=== PATIENT | female | born 1940 | race Hispanic/Latino ===

== ENCOUNTER 2017-12-20 18:16 | Emergency (ER) | payer MEDICARE ==
[~2017-12-20 18:16] MED LIST: ACET325T51 PO; AMIO200T2 PO; APIX2.5T PO; CARV25TA PO; CLOP75TA32 PO; FERR325T22 PO; FURO20TA4 PO; ISOS40TA16 PO; LEVO50TA11 PO; PRAV40TA3 PO; RANO500T3 PO; SACU1TAB7 PO; SENN-178 PO; TRAM50TA4 PO
[2017-12-20 18:57] LABS: INR 1.13 (0.85-1.15); PARTIAL THROMBOPLASTIN TIME 33.8 SEC (26.3-35.5); PROTHROMBIN TIME 11.8 SEC (9.6-11.6)
[2017-12-20 19:07] LABS: BASOPHILS % (AUTO) 0.5 % (0.0-5.0); EOSINOPHILS % (AUTO) 5.9 % (0.0-8.0); HEMATOCRIT 25.9 % (36-48); LYMPHOCYTES % (AUTO) 17.5 % (21.0-51.0); MEAN CORPUSCULAR HEMOGLOBIN 34.7 pg (27.0-33.0); MEAN CORPUSCULAR HGB CONC 34.4 g/dL (32.0-36.0); NEUTROPHILS % (AUTO) 69.1 % (40.0-77.0); PLATELET COUNT (AUTO) 215 K/uL (130-400); RED BLOOD CELL COUNT(AUTO) 2.57 MIL/uL (4.00-5.50); RED CELL DISTRIBUTION WIDTH 12.8 % (11.0-15.5); WHITE BLOOD COUNT (AUTO) 7.2 K/uL (4.8-10.8)
[2017-12-20 19:21] LABS: APPEARANCE,URINE CLOUDY (CLEAR); BILIRUBIN,URINE NEGATIVE (NEGATIVE); COLOR,URINE YELLOW (YELLOW); GLUCOSE, URINE (UA) NEGATIVE (NEGATIVE); KETONES,URINE NEGATIVE (NEGATIVE); LEUKOCYTE ESTERASE ,URINE LARGE (NEGATIVE); NITRATE,URINE POSITIVE (NEGATIVE); OCCULT BLOOD,URINE LARGE (NEGATIVE); PROTEIN,URINE 30 (NEGATIVE); UROBILINOGEN,URINE 0.2 mg/dL (0.2-1.0)
[2017-12-20] MEDS ORDERED: ASPIRIN 325 MG TABLET ONE (19:42)
[2017-12-20 19:55] LABS: BACTERIA,URINE Few /HPF (None Seen); SQUAMOUS EPITHELIAL CELL,UR Few /LPF (0-2); WBC,URINE 26-50 /HPF (0-1)
[2017-12-20 20:12] LABS: BILIRUBIN,TOTAL 0.3 mg/dL (0.2-1.0); CREATININE 2.5 mg/dL (0.5-1.5); POTASSIUM 5.6 mmol/L (3.5-5.1)
[2017-12-20 20:37] LABS: RAPID GROUP A STREP NEGATIVE (NEGATIVE)
[2017-12-20] MEDS ORDERED: SODIUM POLYSTYRENE SULFONATE 15 GM/60 ML ML ONE (20:47)
== END 2017-12-20 21:50 | disposition home or self-care (01) ==
LOC: EDH 18:16
DX: R42 Dizziness and giddiness (principal); R53.1 Weakness; N39.0 Urinary tract infection, site not specified; E11.9 Type 2 diabetes mellitus without complications; I25.10 Atherosclerotic heart disease of native coronary artery without angina pectoris; E78.5 Hyperlipidemia, unspecified; I50.9 Heart failure, unspecified; Z98.890 Other specified postprocedural states; Z88.8 Allergy status to other drugs, medicaments and biological substances
CPT/HCPCS: 36415; 70450; 71045; 80053; 81001; 82550; 82553; 83605; 83874; 83880; 84484; 85025; 85610; 85730; 87804; 87880; 93005; 94761

== ENCOUNTER 2018-01-13 10:47 | Inpatient (IN) | payer MEDICARE ==
[~2018-01-13] VITALS: Ht 152.4 cm; Wt 80.7 kg
[2018-01-13 11:33] LABS: CREATININE 2.2 mg/dL (0.5-1.5); POTASSIUM 4.6 mmol/L (3.5-5.1)
[2018-01-13 11:36] LABS: BASOPHILS % (AUTO) 0.5 % (0.0-5.0); HEMATOCRIT 23.2 % (36-48); LYMPHOCYTES % (AUTO) 9.7 % (21.0-51.0); MEAN CORPUSCULAR HEMOGLOBIN 34.7 pg (27.0-33.0); MEAN CORPUSCULAR HGB CONC 34.3 g/dL (32.0-36.0); MEAN CORPUSCULAR VOLUME 101.2 fL (79-99); MONOCYTES % (AUTO) 5.4 % (3.0-13.0); NEUTROPHILS % (AUTO) 83.4 % (40.0-77.0); PLATELET COUNT (AUTO) 229 K/uL (130-400); RED BLOOD CELL COUNT(AUTO) 2.29 MIL/uL (4.00-5.50); RED CELL DISTRIBUTION WIDTH 14.4 % (11.0-15.5); WHITE BLOOD COUNT (AUTO) 8.9 K/uL (4.8-10.8)
[2018-01-13 11:38] LABS: ALBUMIN 2.9 g/dL (3.5-5.0); BILIRUBIN,TOTAL 0.4 mg/dL (0.2-1.0); TOTAL PROTEIN, SERUM 7.1 g/dL (6.0-8.3)
[2018-01-13 11:46] LABS: INR 1.26 (0.85-1.15); PARTIAL THROMBOPLASTIN TIME 35.4 SEC (26.3-35.5); PROTHROMBIN TIME 13.2 SEC (9.6-11.6)
[2018-01-13] MEDS ORDERED: IPRATROPIUM/ALBUTEROL SULFATE 3 ML SOLUTION IH ONE ×2 (13:46→15:56)
[2018-01-13] MEDS ORDERED: CEFTRIAXONE SODIUM 1 GM ONE (16:20)
[2018-01-13] MEDS ORDERED: AZITHROMYCIN 250 MG TABLET PO ONE (16:21)
[2018-01-13] MEDS ORDERED: SODIUM CHLORIDE 0.9% 100 ML IV ONE (16:21)
[2018-01-13] MEDS ORDERED: METHYLPREDNISOLONE SOD SUCC 40MG/ML 1ML ONE (16:30)
[2018-01-13] MEDS ORDERED: FUROSEMIDE 10 MG/ML 2ML VIAL ONE (16:32)
[2018-01-13 18:01] VITALS: BP 130/62
[2018-01-13] MEDS ORDERED: LEVO500T89 PO (18:13)
[2018-01-13] MEDS ORDERED: CHOL200074 PO (18:13)
[2018-01-13] MEDS ORDERED: INSU100V12 SQ ×2 (18:14)
[2018-01-13 20:00] VITALS: BP 121/66
[2018-01-13] MEDS: FUROSEMIDE 10 MG/ML 2ML VIAL IVP SCH (20:06)
[2018-01-13] MEDS: METHYLPREDNISOLONE SOD SUCC 40MG/ML 1ML IVP SCH (20:07)
[2018-01-13] MEDS: INSULIN R PO SS1 SQ SCH (20:35)
[2018-01-13] MEDS: IPRATROPIUM/ALBUTEROL SULFATE 3 ML SOLUTION IH SCH (23:42)
[2018-01-14] VITALS: BP 123/73
[2018-01-14 04:00] VITALS: BP 116/65
[2018-01-14] MEDS: IPRATROPIUM/ALBUTEROL SULFATE 3 ML SOLUTION IH SCH ×4 (05:00→22:54)
[2018-01-14 05:29] LABS: HEMATOCRIT 24.6 % (36-48); MEAN CORPUSCULAR HEMOGLOBIN 35.5 pg (27.0-33.0); MEAN CORPUSCULAR HGB CONC 35.3 g/dL (32.0-36.0); MEAN CORPUSCULAR VOLUME 100.5 fL (79-99); PLATELET COUNT (AUTO) 258 K/uL (130-400); RED BLOOD CELL COUNT(AUTO) 2.44 MIL/uL (4.00-5.50); WHITE BLOOD COUNT (AUTO) 8.2 K/uL (4.8-10.8)
[2018-01-14 05:39] LABS: ALBUMIN 2.9 g/dL (3.5-5.0); BILIRUBIN,TOTAL 0.4 mg/dL (0.2-1.0); CREATININE 2.3 mg/dL (0.5-1.5); POTASSIUM 4.2 mmol/L (3.5-5.1); TOTAL PROTEIN, SERUM 7.2 g/dL (6.0-8.3)
[2018-01-14] MEDS: INSULIN R PO SS1 SQ SCH ×4 (05:44→22:01)
[2018-01-14 07:37] VITALS: BP 147/67
[2018-01-14] MEDS: LEVOTHYROXINE 50 MCG TABLET PO SCH (08:51)
[2018-01-14] MEDS: ATORVASTATIN CALCIUM 10 MG TABLET PO SCH (08:51)
[2018-01-14] MEDS: METHYLPREDNISOLONE SOD SUCC 40MG/ML 1ML IVP SCH ×2 (08:51→21:47)
[2018-01-14] MEDS: AMIODARONE HCL 200 MG TABLET PO SCH ×2 (08:52→21:47)
[2018-01-14] MEDS: CARVEDILOL 25 MG TABLET PO SCH ×2 (08:52→21:48)
[2018-01-14] MEDS: PANTOPRAZOLE SODIUM 40 MG TABLET.DR PO SCH (08:52)
[2018-01-14] MEDS: APIXABAN 2.5 MG TABLET PO SCH ×2 (08:52→21:48)
[2018-01-14] MEDS: FERROUS SULFATE 325 MG TABLET.DR PO SCH (08:52)
[2018-01-14] MEDS: CLOPIDOGREL BISULFATE 75 MG TAB PO SCH (08:52)
[2018-01-14] MEDS: RANOLAZINE 500 MG TAB.SR.12H PO SCH ×2 (08:52→21:47)
[2018-01-14] MEDS: FUROSEMIDE 10 MG/ML 2ML VIAL IVP SCH ×2 (08:53→21:47)
[2018-01-14] MEDS: **HM** VIT D3 2000 UNITS PO SCH (08:54)
[2018-01-14] MEDS: ISOSORBIDE DINITRATE 20 MG TABLET PO SCH ×2 (08:55→21:48)
[2018-01-14] MEDS ORDERED: SENNA S PO PRN (09:00)
[2018-01-14] MEDS ORDERED: ISOSORBIDE DINITRATE 20 MG TABLET PO SCH (09:00)
[2018-01-14 11:19] VITALS: BP 109/52
[2018-01-14] MEDS: CEFTRIAXONE SODIUM 1 GM IVP SCH (14:55)
[2018-01-14 15:11] VITALS: BP 103/55
[2018-01-14] MEDS: AZITHROMYCIN 500MG+NS 250ML 250 ML IV SCH (15:46)
[2018-01-14 20:00] VITALS: BP 112/60
[2018-01-15] VITALS: BP 114/66
[2018-01-15 04:00] VITALS: BP 111/61
[2018-01-15] MEDS: INSULIN R PO SS1 SQ SCH ×4 (06:27→22:08)
[2018-01-15] MEDS: IPRATROPIUM/ALBUTEROL SULFATE 3 ML SOLUTION IH SCH ×5 (06:59→23:47)
[2018-01-15 08:18] VITALS: BP 125/57
[2018-01-15] MEDS: LEVOTHYROXINE 50 MCG TABLET PO SCH (08:35)
[2018-01-15] MEDS: APIXABAN 2.5 MG TABLET PO SCH ×2 (08:35→22:14)
[2018-01-15] MEDS: METHYLPREDNISOLONE SOD SUCC 40MG/ML 1ML IVP SCH ×2 (08:35→22:14)
[2018-01-15] MEDS: FUROSEMIDE 10 MG/ML 2ML VIAL IVP SCH ×2 (08:35→22:14)
[2018-01-15] MEDS: ATORVASTATIN CALCIUM 10 MG TABLET PO SCH (08:35)
[2018-01-15] MEDS: RANOLAZINE 500 MG TAB.SR.12H PO SCH ×2 (08:36→22:14)
[2018-01-15] MEDS: FERROUS SULFATE 325 MG TABLET.DR PO SCH (08:36)
[2018-01-15] MEDS: PANTOPRAZOLE SODIUM 40 MG TABLET.DR PO SCH (08:36)
[2018-01-15] MEDS: CLOPIDOGREL BISULFATE 75 MG TAB PO SCH (08:36)
[2018-01-15] MEDS: AMIODARONE HCL 200 MG TABLET PO SCH ×2 (08:36→22:14)
[2018-01-15] MEDS: **HM** VIT D3 2000 UNITS PO SCH (08:38)
[2018-01-15] MEDS: ISOSORBIDE DINITRATE 20 MG TABLET PO SCH ×2 (09:00→21:00)
[2018-01-15] MEDS: CARVEDILOL 25 MG TABLET PO SCH ×2 (09:00→21:00)
[2018-01-15 11:14] VITALS: BP 92/63
[2018-01-15] MEDS: AZITHROMYCIN 500MG+NS 250ML 250 ML IV SCH (15:53)
[2018-01-15] MEDS: CEFTRIAXONE SODIUM 1 GM IVP SCH (15:53)
[2018-01-15 17:10] VITALS: BP 147/67
[2018-01-15 19:40] VITALS: BP 112/96
[2018-01-16 00:22] VITALS: BP 125/63
[2018-01-16 04:47] VITALS: BP 142/68
[2018-01-16] MEDS: IPRATROPIUM/ALBUTEROL SULFATE 3 ML SOLUTION IH SCH ×4 (06:10→23:57)
[2018-01-16] MEDS: INSULIN R PO SS1 SQ SCH ×4 (06:16→22:18)
[2018-01-16 08:17] VITALS: BP 128/73
[2018-01-16] MEDS: CARVEDILOL 25 MG TABLET PO SCH ×2 (09:00→22:21)
[2018-01-16] MEDS: **HM** VIT D3 2000 UNITS PO SCH (09:00)
[2018-01-16] MEDS: APIXABAN 2.5 MG TABLET PO SCH ×2 (10:45→22:20)
[2018-01-16] MEDS: RANOLAZINE 500 MG TAB.SR.12H PO SCH ×2 (10:46→22:20)
[2018-01-16] MEDS: CLOPIDOGREL BISULFATE 75 MG TAB PO SCH (10:46)
[2018-01-16] MEDS: PANTOPRAZOLE SODIUM 40 MG TABLET.DR PO SCH (10:46)
[2018-01-16] MEDS: FUROSEMIDE 10 MG/ML 2ML VIAL IVP SCH ×2 (10:46→22:21)
[2018-01-16] MEDS: ATORVASTATIN CALCIUM 10 MG TABLET PO SCH (10:46)
[2018-01-16] MEDS: ISOSORBIDE DINITRATE 20 MG TABLET PO SCH ×2 (10:46→21:00)
[2018-01-16] MEDS: FERROUS SULFATE 325 MG TABLET.DR PO SCH (10:46)
[2018-01-16] MEDS: METHYLPREDNISOLONE SOD SUCC 40MG/ML 1ML IVP SCH ×2 (10:46→22:21)
[2018-01-16] MEDS: AMIODARONE HCL 200 MG TABLET PO SCH ×2 (10:47→22:20)
[2018-01-16] MEDS: LEVOTHYROXINE 50 MCG TABLET PO SCH (10:48)
[2018-01-16 11:52] VITALS: BP 145/80
[2018-01-16 16:12] VITALS: BP 124/73
[2018-01-16] MEDS: LACTULOSE 20 GM/30 ML UDCUP PO SCH (16:59)
[2018-01-16] MEDS: CEFTRIAXONE SODIUM 1 GM IVP SCH (17:00)
[2018-01-16] MEDS: AZITHROMYCIN 500MG+NS 250ML 250 ML IV SCH (17:00)
[2018-01-16 20:29] VITALS: BP 134/72
[2018-01-17 00:44] VITALS: BP 124/72
[2018-01-17] MEDS: LACTULOSE 20 GM/30 ML UDCUP PO SCH ×4 (00:45→21:41)
[2018-01-17 04:21] VITALS: BP 117/52
[2018-01-17 06:11] LABS: HEMATOCRIT 24.7 % (36-48); MEAN CORPUSCULAR HEMOGLOBIN 33.7 pg (27.0-33.0); MEAN CORPUSCULAR HGB CONC 33.5 g/dL (32.0-36.0); MEAN CORPUSCULAR VOLUME 100.4 fL (79-99); NUCLEATED RED BLOOD CELLS 0.1 % (0.0-0.19); PLATELET COUNT (AUTO) 269 K/uL (130-400); RED BLOOD CELL COUNT(AUTO) 2.46 MIL/uL (4.00-5.50); RED CELL DISTRIBUTION WIDTH 14.6 % (11.0-15.5); WHITE BLOOD COUNT (AUTO) 11.2 K/uL (4.8-10.8)
[2018-01-17 06:25] LABS: ALBUMIN 2.9 g/dL (3.5-5.0); BILIRUBIN,TOTAL 0.3 mg/dL (0.2-1.0); MAGNESIUM 2.2 mg/dL (1.80-2.40); TOTAL PROTEIN, SERUM 6.7 g/dL (6.0-8.3)
[2018-01-17] MEDS: INSULIN R PO SS1 SQ SCH ×4 (06:29→21:56)
[2018-01-17] MEDS: IPRATROPIUM/ALBUTEROL SULFATE 3 ML SOLUTION IH SCH ×4 (06:34→23:48)
[2018-01-17 07:53] VITALS: BP 112/48
[2018-01-17] MEDS: ISOSORBIDE DINITRATE 20 MG TABLET PO SCH ×2 (09:00→21:43)
[2018-01-17] MEDS: **HM** VIT D3 2000 UNITS PO SCH (09:00)
[2018-01-17] MEDS ORDERED: BISACODYL 10 MG SUPP.RECT RC SCH (09:09)
[2018-01-17] MEDS: FUROSEMIDE 10 MG/ML 2ML VIAL IVP SCH ×2 (10:36→21:43)
[2018-01-17] MEDS: METHYLPREDNISOLONE SOD SUCC 40MG/ML 1ML IVP SCH ×2 (10:37→21:43)
[2018-01-17] MEDS: APIXABAN 2.5 MG TABLET PO SCH ×2 (10:39→21:43)
[2018-01-17] MEDS: RANOLAZINE 500 MG TAB.SR.12H PO SCH ×2 (10:40→21:43)
[2018-01-17] MEDS: FERROUS SULFATE 325 MG TABLET.DR PO SCH (10:40)
[2018-01-17] MEDS: CLOPIDOGREL BISULFATE 75 MG TAB PO SCH (10:40)
[2018-01-17] MEDS: CARVEDILOL 25 MG TABLET PO SCH ×2 (10:40→21:44)
[2018-01-17] MEDS: LEVOTHYROXINE 50 MCG TABLET PO SCH (10:40)
[2018-01-17] MEDS: AMIODARONE HCL 200 MG TABLET PO SCH ×2 (10:40→21:44)
[2018-01-17] MEDS: PANTOPRAZOLE SODIUM 40 MG TABLET.DR PO SCH (10:40)
[2018-01-17] MEDS: ATORVASTATIN CALCIUM 10 MG TABLET PO SCH (10:40)
[2018-01-17 11:59] VITALS: BP 91/58
[2018-01-17] MEDS: CEFTRIAXONE SODIUM 1 GM IVP SCH (15:57)
[2018-01-17] MEDS: AZITHROMYCIN 500MG+NS 250ML 250 ML IV SCH (15:57)
[2018-01-17 16:00] VITALS: BP 139/54
[2018-01-17] MEDS: ACETAMINOPHEN 325 MG TAB PO PRN (18:25)
[2018-01-17] MEDS ORDERED: ONDANSETRON HCL 4 MG/2 ML VIAL ONE (18:44)
[2018-01-17] MEDS ORDERED: ACETAMINOPHEN 325 MG TAB PO PRN (19:30)
[2018-01-17 20:29] VITALS: BP 114/62
[2018-01-17] MEDS: HYDROMORPHONE HCL 0.5 MG/0.5 ML ML IVP PRN (21:45)
[2018-01-17] MEDS: ONDANSETRON HCL 4 MG/2 ML VIAL IVP PRN (22:46)
[2018-01-18] VITALS (16 sets, daily range): BP systolic 65–156; BP diastolic 28–62
[2018-01-18] MEDS: ACETAMINOPHEN 325 MG TAB PO PRN ×2 (00:55→06:47)
[2018-01-18] MEDS: IPRATROPIUM/ALBUTEROL SULFATE 3 ML SOLUTION IH SCH ×4 (06:43→23:42)
[2018-01-18] MEDS: INSULIN R PO SS1 SQ SCH ×4 (06:49→20:55)
[2018-01-18 07:59] LABS: HEMATOCRIT 31.3 % (36-48); MEAN CORPUSCULAR HEMOGLOBIN 34.8 pg (27.0-33.0); MEAN CORPUSCULAR HGB CONC 34.6 g/dL (32.0-36.0); MEAN CORPUSCULAR VOLUME 100.6 fL (79-99); PLATELET COUNT (AUTO) 294 K/uL (130-400); RED BLOOD CELL COUNT(AUTO) 3.11 MIL/uL (4.00-5.50); RED CELL DISTRIBUTION WIDTH 14.8 % (11.0-15.5); WHITE BLOOD COUNT (AUTO) 23.4 K/uL (4.8-10.8)
[2018-01-18 08:15] LABS: ALBUMIN 2.6 g/dL (3.5-5.0); BILIRUBIN,TOTAL 0.4 mg/dL (0.2-1.0); CREATININE 2.9 mg/dL (0.5-1.5); POTASSIUM 3.8 mmol/L (3.5-5.1)
[2018-01-18] MEDS: LACTULOSE 20 GM/30 ML UDCUP PO SCH (08:45)
[2018-01-18] MEDS: **HM** VIT D3 2000 UNITS PO SCH (09:00)
[2018-01-18] MEDS: FUROSEMIDE 10 MG/ML 2ML VIAL IVP SCH (09:55)
[2018-01-18] MEDS: ONDANSETRON HCL 4 MG/2 ML VIAL IVP PRN (10:08)
[2018-01-18] MEDS: RANOLAZINE 500 MG TAB.SR.12H PO SCH ×2 (10:09→20:48)
[2018-01-18] MEDS: PANTOPRAZOLE SODIUM 40 MG TABLET.DR PO SCH (10:09)
[2018-01-18] MEDS: APIXABAN 2.5 MG TABLET PO SCH ×2 (10:09→20:48)
[2018-01-18] MEDS: AMIODARONE HCL 200 MG TABLET PO SCH ×2 (10:09→19:58)
[2018-01-18] MEDS: CLOPIDOGREL BISULFATE 75 MG TAB PO SCH (10:09)
[2018-01-18] MEDS: FERROUS SULFATE 325 MG TABLET.DR PO SCH (10:10)
[2018-01-18] MEDS: ATORVASTATIN CALCIUM 10 MG TABLET PO SCH (10:10)
[2018-01-18] MEDS: ISOSORBIDE DINITRATE 20 MG TABLET PO SCH ×2 (10:11→19:54)
[2018-01-18] MEDS: CARVEDILOL 25 MG TABLET PO SCH ×2 (10:12→19:54)
[2018-01-18] MEDS: LEVOTHYROXINE 50 MCG TABLET PO SCH (10:24)
[2018-01-18 10:34] LABS: APPEARANCE,URINE CLEAR (CLEAR); BILIRUBIN,URINE NEGATIVE (NEGATIVE); COLOR,URINE YELLOW (YELLOW); GLUCOSE, URINE (UA) NEGATIVE (NEGATIVE); KETONES,URINE NEGATIVE (NEGATIVE); LEUKOCYTE ESTERASE ,URINE NEGATIVE (NEGATIVE); NITRATE,URINE NEGATIVE (NEGATIVE); OCCULT BLOOD,URINE NEGATIVE (NEGATIVE); PROTEIN,URINE NEGATIVE (NEGATIVE); UROBILINOGEN,URINE 0.2 mg/dL (0.2-1.0)
[2018-01-18] MEDS: KETOROLAC TROMETHAMINE 15MG/ML ONE ×2 (13:31→14:29)
[2018-01-18] MEDS: CEFTRIAXONE SODIUM 1 GM IVP SCH (14:30)
[2018-01-18] MEDS: AZITHROMYCIN 500MG+NS 250ML 250 ML IV SCH (14:31)
[2018-01-18] MEDS ORDERED: KETOROLAC TROMETHAMINE 15MG/ML IV ONE (15:00)
[2018-01-18] MEDS: FUROSEMIDE 20 MG TABLET PO SCH (17:00)
[2018-01-18] MEDS ORDERED: SODIUM CHLORIDE 0.9% 1000ML 1,000 ML IV ONE (17:26)
[2018-01-18] MEDS ORDERED: SODIUM CHLORIDE 0.9% 1000ML 1,000 ML IV SCH (18:00)
[2018-01-18] MEDS: SODIUM CHLORIDE 0.9% 1000ML 1,000 ML IV SCH (22:30)
[2018-01-19] VITALS (8 sets, daily range): BP systolic 84–129; BP diastolic 42–65
[2018-01-19] MEDS: INSULIN R PO SS1 SQ SCH ×4 (06:34→21:52)
[2018-01-19] MEDS: IPRATROPIUM/ALBUTEROL SULFATE 3 ML SOLUTION IH SCH ×3 (07:16→18:13)
[2018-01-19 07:57] LABS: BASOPHILS % (AUTO) 0.1 % (0.0-5.0); HEMATOCRIT 29.2 % (36-48); MEAN CORPUSCULAR HEMOGLOBIN 33.7 pg (27.0-33.0); MEAN CORPUSCULAR HGB CONC 33.5 g/dL (32.0-36.0); MEAN CORPUSCULAR VOLUME 100.4 fL (79-99); MONOCYTES % (AUTO) 3.9 % (3.0-13.0); PLATELET COUNT (AUTO) 214 K/uL (130-400); RED BLOOD CELL COUNT(AUTO) 2.91 MIL/uL (4.00-5.50); RED CELL DISTRIBUTION WIDTH 15.2 % (11.0-15.5); WHITE BLOOD COUNT (AUTO) 20.6 K/uL (4.8-10.8)
[2018-01-19 08:09] LABS: BILIRUBIN,TOTAL 0.5 mg/dL (0.2-1.0); CREATININE 3.5 mg/dL (0.5-1.5); POTASSIUM 4.6 mmol/L (3.5-5.1); TOTAL PROTEIN, SERUM 5.3 g/dL (6.0-8.3)
[2018-01-19] MEDS: CARVEDILOL 25 MG TABLET PO SCH ×2 (09:00→21:00)
[2018-01-19] MEDS: FUROSEMIDE 20 MG TABLET PO SCH (09:00)
[2018-01-19] MEDS: **HM** VIT D3 2000 UNITS PO SCH (09:00)
[2018-01-19] MEDS: ISOSORBIDE DINITRATE 20 MG TABLET PO SCH (09:00)
[2018-01-19] MEDS: SODIUM CHLORIDE 0.9% 1000ML 1,000 ML IV SCH ×2 (09:05→22:25)
[2018-01-19] MEDS: APIXABAN 2.5 MG TABLET PO SCH (09:53)
[2018-01-19] MEDS: ATORVASTATIN CALCIUM 10 MG TABLET PO SCH (09:53)
[2018-01-19] MEDS: CLOPIDOGREL BISULFATE 75 MG TAB PO SCH (09:53)
[2018-01-19] MEDS: PREDNISONE 20 MG TABLET PO SCH (09:54)
[2018-01-19] MEDS: LEVOTHYROXINE 50 MCG TABLET PO SCH (09:54)
[2018-01-19] MEDS: PANTOPRAZOLE SODIUM 40 MG TABLET.DR PO SCH (09:54)
[2018-01-19] MEDS: FERROUS SULFATE 325 MG TABLET.DR PO SCH (09:54)
[2018-01-19] MEDS ORDERED: VANCOMYCIN 1GM+NS 250ML 250 ML IV SCH (11:00)
[2018-01-19] MEDS ORDERED: PHARMACY COMMUNICATION MISC SCH (11:00)
[2018-01-19] MEDS: AMIODARONE HCL 200 MG TABLET PO SCH (11:39)
[2018-01-19] MEDS: RANOLAZINE 500 MG TAB.SR.12H PO SCH ×2 (11:39→21:47)
[2018-01-19] MEDS ORDERED: SODIUM CHLORIDE 0.9% 250 ML IV SCH (11:45)
[2018-01-19] MEDS ORDERED: COMPOUND IV REFRIGERATED 1 EACH IVSOLN MISC PRN (12:15)
[2018-01-19] MEDS: MIDODRINE HCL 5 MG TABLET PO SCH ×2 (15:40→21:46)
[2018-01-19] MEDS: AZITHROMYCIN 500MG+NS 250ML 250 ML IV SCH (16:57)
[2018-01-19] MEDS: CEFTRIAXONE SODIUM 1 GM IVP SCH (16:57)
[2018-01-20 00:05] VITALS: BP 101/47
[2018-01-20] MEDS: IPRATROPIUM/ALBUTEROL SULFATE 3 ML SOLUTION IH SCH ×3 (00:09→11:07)
[2018-01-20 04:35] VITALS: BP 110/83
[2018-01-20 05:41] LABS: HEMATOCRIT 26.2 % (36-48); MEAN CORPUSCULAR HEMOGLOBIN 34.3 pg (27.0-33.0); MEAN CORPUSCULAR HGB CONC 34.1 g/dL (32.0-36.0); MEAN CORPUSCULAR VOLUME 100.6 fL (79-99); PLATELET COUNT (AUTO) 192 K/uL (130-400); RED CELL DISTRIBUTION WIDTH 15.1 % (11.0-15.5); WHITE BLOOD COUNT (AUTO) 16.7 K/uL (4.8-10.8)
[2018-01-20 05:54] LABS: CREATININE 3.5 mg/dL (0.5-1.5); POTASSIUM 4.1 mmol/L (3.5-5.1)
[2018-01-20] MEDS: INSULIN R PO SS1 SQ SCH ×3 (06:22→16:30)
[2018-01-20 07:10] LABS: BAND NEUTROPHILS % (MANUAL) 3 % (0-2); LYMPHOCYTES % (MANUAL) 2 % (22-44); MAN.DIFF COMMENT-IMPRESSION MANUAL DIFFERENTIAL; MONOCYTES % (MANUAL) 3 % (2-9); PLATELET MORPHOLOGY COMMENT ADEQUATE; SEGMENTED NEUTROPHILS % 92 % (40-70)
[2018-01-20] MEDS ORDERED: FUROSEMIDE 10 MG/ML 2ML VIAL IV SCH (08:00)
[2018-01-20 08:14] VITALS: BP 113/54
[2018-01-20] MEDS: CARVEDILOL 25 MG TABLET PO SCH (09:00)
[2018-01-20] MEDS: **HM** VIT D3 2000 UNITS PO SCH (09:00)
[2018-01-20] MEDS ORDERED: ENOXAPARIN SODIUM 30 MG/0.3 ML SQ SCH (09:00)
[2018-01-20] MEDS: PREDNISONE 20 MG TABLET PO SCH (09:02)
[2018-01-20] MEDS: LEVOTHYROXINE 50 MCG TABLET PO SCH (09:02)
[2018-01-20] MEDS: PANTOPRAZOLE SODIUM 40 MG TABLET.DR PO SCH (09:02)
[2018-01-20] MEDS: FERROUS SULFATE 325 MG TABLET.DR PO SCH (09:02)
[2018-01-20] MEDS: RANOLAZINE 500 MG TAB.SR.12H PO SCH (09:02)
[2018-01-20] MEDS: MIDODRINE HCL 5 MG TABLET PO SCH ×2 (09:02→14:14)
[2018-01-20] MEDS: SODIUM CHLORIDE 0.9% 1000ML 1,000 ML IV SCH (11:45)
[2018-01-20 12:00] VITALS: BP 118/61
[2018-01-20] MEDS: CEFTRIAXONE SODIUM 1 GM IVP SCH (14:14)
[2018-01-20] MEDS: AZITHROMYCIN 500MG+NS 250ML 250 ML IV SCH (14:15)
[2018-01-20 16:15] VITALS: BP 96/50
[2018-01-20] MEDS: HYDROMORPHONE HCL 0.5 MG/0.5 ML ML IVP PRN (16:45)
[2018-01-20] MEDS ORDERED: NALOXONE HCL 0.4 MG/1 ML ML ONE (17:18)
[2018-01-20] MEDS ORDERED: FUROSEMIDE 10 MG/ML 4ML VIAL ONE (17:23)
[2018-01-20 17:24] LABS: ABG HCO3 18.1 mmol/L (21.0-28.0); ABG OXYGEN SATURATION 99.8 % (95.0-99.0); ABG PCO2 32 mmHg (32-45)
[2018-01-20] MEDS ORDERED: FUROSEMIDE 10 MG/ML 4ML VIAL IV SCH (17:30)
[2018-01-20 17:43] LABS: HEMATOCRIT 25.9 % (36-48); MEAN CORPUSCULAR HEMOGLOBIN 35.4 pg (27.0-33.0); MEAN CORPUSCULAR VOLUME 100.9 fL (79-99); PLATELET COUNT (AUTO) 200 K/uL (130-400); RED BLOOD CELL COUNT(AUTO) 2.57 MIL/uL (4.00-5.50); RED CELL DISTRIBUTION WIDTH 15.2 % (11.0-15.5); WHITE BLOOD COUNT (AUTO) 18.1 K/uL (4.8-10.8)
[2018-01-20] MEDS ORDERED: NALOXONE HCL 0.4 MG/1 ML ML IVP ONE (17:45)
[2018-01-20 17:54] LABS: CREATININE 3.2 mg/dL (0.5-1.5); POTASSIUM 3.9 mmol/L (3.5-5.1)
[2018-01-20 18:13] LABS: B-TYPE NATRIURETIC PEPTIDE 2220 pg/mL (0-100)
[2018-01-21] MEDS ORDERED: VANCOMYCIN 750MG + NS 250 ML IV SCH ×2 (09:00)
== END 2018-01-20 19:30 | disposition expired | DRG 871 ==
LOC: EDH 10:47 → EDHIP 16:24 → 4BH 17:44 → 2AH 01-20 18:23
PROVIDERS: ADMIT Internal Medicine Nephrology; ATTEND Internal Medicine Nephrology
DX: A41.9 Sepsis, unspecified organism (principal); J18.9 Pneumonia, unspecified organism; I50.43 Acute on chronic combined systolic (congestive) and diastolic (congestive) heart failure; N18.4 Chronic kidney disease, stage 4 (severe); E11.22 Type 2 diabetes mellitus with diabetic chronic kidney disease; I48.0 Paroxysmal atrial fibrillation; N17.9 Acute kidney failure, unspecified; I13.0 Hypertensive heart and chronic kidney disease with heart failure and stage 1 through stage 4 chronic kidney disease, or unspecified chronic kidney disease; K59.00 Constipation, unspecified; I34.0 Nonrheumatic mitral (valve) insufficiency; D64.9 Anemia, unspecified; Z96.649 Presence of unspecified artificial hip joint; E66.9 Obesity, unspecified; J45.909 Unspecified asthma, uncomplicated; R19.7 Diarrhea, unspecified; I25.10 Atherosclerotic heart disease of native coronary artery without angina pectoris; I44.7 Left bundle-branch block, unspecified; N18.9 Chronic kidney disease, unspecified; E78.5 Hyperlipidemia, unspecified; E03.9 Hypothyroidism, unspecified; M81.0 Age-related osteoporosis without current pathological fracture; Z79.01 Long term (current) use of anticoagulants; Z88.6 Allergy status to analgesic agent; Z98.891 History of uterine scar from previous surgery; Z68.34 Body mass index [BMI] 34.0-34.9, adult
CPT/HCPCS: 36415; 36600; 71045; 71250; 73501; 74018; 80048; 80053; 81003; 82803; 82948; 83735; 83880; 84484; 85025; 85027; 85610; 85730; 87040; 87088; 87186; 93005; 94640; 94660; 94664; A4218; A4344; J0456; J0696; J1170; J1650; J1815; J1885; J1940; J2310; J2405; J2920; J3370; J7030